=== PATIENT | male | born 1965 | race Caucasian/White ===

== ENCOUNTER → 2023-02-17 | Outpatient (CLI) | payer OTHER | END | disposition home or self-care (01) | LOC: LAB 11:30 → LAB SHORT 11:30 | DX: R50.9 Fever, unspecified (principal) | CPT/HCPCS: 87040 ==

== ENCOUNTER → 2023-02-17 | Outpatient (CLI) | payer OTHER ==
[2023-02-17 11:07] LABS: Hemoglobin 14.1 g/dL (13.5-17.5); Mean Corpuscular HGB 31.2 pg (26.0-34.0); Mean Corpuscular HGB Conc 35.3 g/dL (31.5-36.5); Mean Corpuscular Volume 89 fL (80-100); Mean Platelet Volume 9.3 fL (9.1-12.4); Platelet Count 144 K/mm3 (150-400); RDW Coefficient Variation 14.3 % (11.7-14.2); RDW Standard Deviation 45.7 fL (35.1-46.3); Red Blood Cell Count 4.52 M/mm3 (4.30-5.90); White Blood Cell Count 11.78 K/mm3 (4.00-11.30)
[2023-02-17 11:21] LABS: Albumin, Blood 4.1 g/dL (3.4-5.0); Albumin/Globulin Ratio 1.3 (0.8-1.8); Bilirubin, Total 1.4 mg/dL (0.1-1.0); Bun/Creatinine Ratio 12.9 (12.0-20.0); Calcium, Blood 8.9 mg/dL (8.5-10.1); Creatinine, Blood 1.24 mg/dL (0.60-1.20); Globulin, Blood 3.2 g/dL (2.2-4.0); Potassium, Blood 3.4 mmol/L (3.5-5.5); Total Protein, Blood 7.3 g/dL (6.4-8.2)
[2023-02-17 11:44] LABS: BAND PERCENT MAN 4 % (0-8); BASOPHILS PERCENT MAN 0 % (0-2); EOSINOPHILS PERCENT MAN 0 % (0-6); LYMPHOCYTES ABSOLUTE MAN 0.82 K/mm3 (0.84-5.20); LYMPHOCYTES PERCENT MAN 7 % (21-46); MONOCYTES ABSOLUTE MAN 0.58 K/mm3 (0.16-1.47); MONOCYTES PERCENT MAN 5 % (4-13); NEUTROPHILS ABSOLUTE MAN 10.36 K/mm3 (1.96-9.15); SEG NEUTROPHILS PERCENT MAN 84 % (41-73); TOTAL CELLS COUNTED 100
== END ==
LOC: LAB 10:57 → LAB SHORT 10:57
PROVIDERS: Physician Assistant Medical
DX: L03.116 Cellulitis of left lower limb (principal)
CPT/HCPCS: 80053; 83605; 83690; 85025

== ENCOUNTER → 2023-02-18 | Outpatient (CLI) | payer OTHER ==
[2023-02-18 17:29] LABS: BASOPHILS ABSOLUTE AUTO 0.05 K/mm3 (0.00-0.23); BASOPHILS PERCENT AUTO 1 % (0-2); EOSINOPHILS ABSOLUTE AUTO 0.06 K/mm3 (0.00-0.68); EOSINOPHILS PERCENT AUTO 1 % (0-6); Hematocrit 39.1 % (37.0-53.0); Hemoglobin 13.7 g/dL (13.5-17.5); IMMATURE GRAN ABSOLUTE AUTO 0.02 K/mm3 (0.00-0.10); IMMATURE GRAN PERCENT AUTO 0 % (0-1); LYMPHOCYTES ABSOLUTE AUTO 0.92 K/mm3 (0.84-5.20); LYMPHOCYTES PERCENT AUTO 14 % (21-46); MONOCYTES PERCENT AUTO 11 % (4-13); Mean Corpuscular HGB 31.1 pg (26.0-34.0); Mean Corpuscular Volume 89 fL (80-100); NEUTROPHILS ABSOLUTE AUTO 4.88 K/mm3 (1.96-9.15); NEUTROPHILS PERCENT AUTO 74 % (41-73); RDW Coefficient Variation 14.8 % (11.7-14.2); RDW Standard Deviation 47.5 fL (35.1-46.3); White Blood Cell Count 6.63 K/mm3 (4.00-11.30)
[2023-02-18 17:31] LABS: Platelet Count 129 K/mm3 (150-400)
== END | disposition home or self-care (01) ==
LOC: LAB 17:25 → LAB SHORT 17:25
PROVIDERS: Physician Assistant Medical
DX: L03.116 Cellulitis of left lower limb (principal)
CPT/HCPCS: 85025

== ENCOUNTER 2023-06-21 14:16 | Inpatient (IN) | payer OTHER ==
[~2023-06-21] VITALS: Ht 190.5 cm; Wt 174.3 kg
[2023-06-21] MEDS ORDERED: Doxycycline Mo100 M1 PO (15:37)
[2023-06-21] MEDS ORDERED: ARNUITY ELLIPT50 MCG (15:38)
[2023-06-21] MEDS ORDERED: FURO40 PO (15:39)
[2023-06-21] MEDS ORDERED: GABA300 PO (15:40)
[2023-06-21] MEDS ORDERED: LEVO750 PO (15:40)
[2023-06-21] MEDS ORDERED: METO100ER PO (15:41)
[2023-06-21] MEDS ORDERED: POTA20PAC PO (15:41)
[2023-06-21] MEDS ORDERED: TELM80 PO (15:42)
[2023-06-21 16:42] LABS: Hematocrit 41.4 % (37.0-53.0); Hemoglobin 14.6 g/dL (13.5-17.5); Mean Corpuscular HGB 31.1 pg (26.0-34.0); Mean Corpuscular HGB Conc 35.3 g/dL (31.5-36.5); Mean Corpuscular Volume 88 fL (80-100); Mean Platelet Volume 9.3 fL (9.1-12.4); Platelet Count 145 K/mm3 (150-400); RDW Coefficient Variation 14.2 % (11.7-14.2); RDW Standard Deviation 45.4 fL (35.1-46.3); White Blood Cell Count 13.09 K/mm3 (4.00-11.30)
[2023-06-21 17:00] LABS: BAND PERCENT MAN 31 % (0-8); BASOPHILS PERCENT MAN 0 % (0-2); EOSINOPHILS PERCENT MAN 0 % (0-6); LYMPHOCYTES ABSOLUTE MAN 0.39 K/mm3 (0.84-5.20); LYMPHOCYTES PERCENT MAN 3 % (21-46); METAMYELOCYTE ABSOLUTE MAN 0.13 K/mm3 (0.00-0.00); METAMYELOCYTE PERCENT MAN 1 % (0-0); MONOCYTES ABSOLUTE MAN 0.39 K/mm3 (0.16-1.47); MONOCYTES PERCENT MAN 3 % (4-13); MYELOCYTE ABSOLUTE MAN 0.13 K/mm3 (0.00-0.00); MYELOCYTE PERCENT MAN 1 % (0-0); NEUTROPHILS ABSOLUTE MAN 12.04 K/mm3 (1.96-9.15); SEG NEUTROPHILS PERCENT MAN 61 % (41-73); TOTAL CELLS COUNTED 100
[2023-06-21 17:06] LABS: Albumin, Blood 3.8 g/dL (3.4-5.0); Albumin/Globulin Ratio 1.2 (0.8-1.8); Bilirubin, Total 1.2 mg/dL (0.1-1.0); Calcium, Blood 9.3 mg/dL (8.5-10.1); Creatinine, Blood 1.14 mg/dL (0.60-1.20); Globulin, Blood 3.1 g/dL (2.2-4.0); Potassium, Blood 3.1 mmol/L (3.5-5.5); Total Protein, Blood 6.9 g/dL (6.4-8.2)
[2023-06-21 20:41] LABS: Bicarbonate Venous 22.8 mmol/L (24.0-30.0); PCO2 Venous 35.4 mmHg (38-42); pH Blood Venous 7.41 (7.34-7.37)
[2023-06-21 20:42] LABS: Base Excess Venous -2.5 mmol/L
[2023-06-22 01:45] VITALS: BP 138/97
[2023-06-22 03:55] LABS: Hematocrit 38.9 % (37.0-53.0); Hemoglobin 13.6 g/dL (13.5-17.5); Mean Corpuscular HGB 31.3 pg (26.0-34.0); Mean Corpuscular Volume 90 fL (80-100); Mean Platelet Volume 9.4 fL (9.1-12.4); Platelet Count 145 K/mm3 (150-400); RDW Coefficient Variation 14.6 % (11.7-14.2); RDW Standard Deviation 47.8 fL (35.1-46.3); Red Blood Cell Count 4.34 M/mm3 (4.30-5.90); White Blood Cell Count 21.05 K/mm3 (4.00-11.30)
[2023-06-22 04:14] LABS: Albumin, Blood 3.2 g/dL (3.4-5.0); Albumin/Globulin Ratio 0.9 (0.8-1.8); Bilirubin, Total 1.4 mg/dL (0.1-1.0); Bun/Creatinine Ratio 14.3 (12.0-20.0); Calcium, Blood 8.2 mg/dL (8.5-10.1); Creatinine, Blood 1.26 mg/dL (0.60-1.20); Globulin, Blood 3.4 g/dL (2.2-4.0); Magnesium, Blood 1.4 mg/dL (1.6-2.4); Potassium, Blood 4.1 mmol/L (3.5-5.5); Total Protein, Blood 6.6 g/dL (6.4-8.2)
[2023-06-22 04:28] LABS: BAND PERCENT MAN 26 % (0-8); BASOPHILS ABSOLUTE MAN 0.21 K/mm3 (0.00-0.23); BASOPHILS PERCENT MAN 1 % (0-2); EOSINOPHILS PERCENT MAN 0 % (0-6); LYMPHOCYTES ABSOLUTE MAN 0.21 K/mm3 (0.84-5.20); LYMPHOCYTES PERCENT MAN 1 % (21-46); METAMYELOCYTE ABSOLUTE MAN 0.42 K/mm3 (0.00-0.00); METAMYELOCYTE PERCENT MAN 2 % (0-0); MONOCYTES ABSOLUTE MAN 0.42 K/mm3 (0.16-1.47); MONOCYTES PERCENT MAN 2 % (4-13); MYELOCYTE ABSOLUTE MAN 0.21 K/mm3 (0.00-0.00); MYELOCYTE PERCENT MAN 1 % (0-0); NEUTROPHILS ABSOLUTE MAN 19.57 K/mm3 (1.96-9.15); SEG NEUTROPHILS PERCENT MAN 67 % (41-73); TOTAL CELLS COUNTED 100
--- NOTE | 2023-06-22 06:10 | NUR ---
SHIFT SUMMARY PT A&OX4, AND COOPERATIVE WITH CARE. NO ACUTE CHANGES, VSS. PT HAS NOT NEEDED PAIN COVERAGE SINCE ARRIVAL TO FLOOR. 1-ASSIST TO BATHROOM, INDEPENDENT TO BSC. PHOTO'S OF LLE TAKEN AND PLACED IN CHART. WEARS PERSONAL CPAP WHILE SLEEPING. CALLS APPROPRIATELY, CALL LIGHT WITHIN REACH.
[2023-06-22 07:22] VITALS: BP 138/74
[2023-06-22 11:51] VITALS: BP 100/84
[2023-06-22 16:05] VITALS: BP 137/78
--- NOTE | 2023-06-22 16:19 | NUR ---
PT REQUESTING PAIN MEDICATION. RN TO ROOM, PT APPEARS TO HAVE INCREASED CHILLS. TEMPORAL TEMP 103.7. PT GIVEN TYLENOL, REMOVED BLANKETS OTHER THAN SHEET, TEMP OF ROOM DECREASED. MD NOTIFIED, NO NEW ORDERS AT THIS TIME. HONEY PRODUCER NOTIFIED, ICE BAG PLACED BEHIND NECK.
--- NOTE | 2023-06-22 18:16 | NUR ---
ORAL TEMP DOWN TO 99.1 FOLLOWING ADMINISTRATION OF TYLENOL AND ICE PACK PLACEMENT. REDNESS ON LEGS HAS RECEEDED FROM LINE DRAWN AT 0800. FLUIDS RESTARTED AT 150/HR PER MD ORDER. PT HAS NOT HAD ANY APPETITE THIS AFTERNOON, LAST BM 06/21/23, REPORTS FLATUS. PT SBA TO BATHROOM ALTHOUGH HAS NOT BEEN USING URINAL SO PT RE-EDUCATEC ON THE NEED TO MEASSURE INTAKE/OUTPUT. URINAL PLACED AT BEDSIDE.
[2023-06-22 20:25] VITALS: BP 132/77
[2023-06-23 00:11] VITALS: BP 130/80
--- NOTE | 2023-06-23 03:18 | NUR ---
SHIFT SUMMARY NO ACUTE CHANGES TO REPORT OVERNIGHT, PT HAS BEEN AFEBRILE T/O THE SHIFT. VITALS ARE STABLE. CELLULITIS TO LLE OUTLINED WITH NONI WITH NO CHANGE. IV ANTIBIOTICS CONTINUED. PT A/OX4 AND MAKES NEEDS KNOWN. ASSESSMENT OTHERWISE UNCHANGED. BED IN LOWEST POSITION, CALL LIGHT WITHIN REACH.
[2023-06-23 04:00] VITALS: BP 130/81
--- NOTE | 2023-06-23 07:03 | NUR ---
INCREASED SOB PT REPORTS INCREASED SOB, AND FULLNESS IN BELLY. HE DENIES CHEST PAIN OR PRESSURE, BUT REPORTS HAVING A HARD TIME GETTING A BREATH IN. SATS WNL ON RA AVG AROUND 95%. LUNG SOUNDS CLEAR WITHOUT CRACKLES. PT HAS BEEN RECEIVING LR AT 150 ML. PT HAS VOIDED THIS SHIFT. HOWEVER, PT HAS NOT BEEN VOIDING IN URINAL DESPITE INSTRUCTION TO DO SO FOR ACCURATE I&O'S. BLADDER SCAN THIS SHIFT SHOWS A VOLUME OF 227. DR. DIAL CALLED AND NOTIFIED OF PT COMPLAINTS OF SOB, OUTPUT AND FLUIDS THAT ARE INFUSING. DR. DIAL ORDERED A CHEST X-RAY, AND TO DC FLUIDS. REPORT GIVEN TO COOPER KAUFMAN.
[2023-06-23 07:18] LABS: BASOPHILS ABSOLUTE AUTO 0.04 K/mm3 (0.00-0.23); BASOPHILS PERCENT AUTO 0 % (0-2); EOSINOPHILS ABSOLUTE AUTO 0.09 K/mm3 (0.00-0.68); EOSINOPHILS PERCENT AUTO 1 % (0-6); Hematocrit 34.4 % (37.0-53.0); Hemoglobin 12.2 g/dL (13.5-17.5); IMMATURE GRAN ABSOLUTE AUTO 0.08 K/mm3 (0.00-0.10); IMMATURE GRAN PERCENT AUTO 1 % (0-1); LYMPHOCYTES ABSOLUTE AUTO 0.69 K/mm3 (0.84-5.20); LYMPHOCYTES PERCENT AUTO 6 % (21-46); MONOCYTES ABSOLUTE AUTO 0.72 K/mm3 (0.16-1.47); MONOCYTES PERCENT AUTO 6 % (4-13); Mean Corpuscular HGB 31.1 pg (26.0-34.0); Mean Corpuscular HGB Conc 35.5 g/dL (31.5-36.5); Mean Corpuscular Volume 88 fL (80-100); Mean Platelet Volume 9.3 fL (9.1-12.4); NEUTROPHILS ABSOLUTE AUTO 10.07 K/mm3 (1.96-9.15); NEUTROPHILS PERCENT AUTO 86 % (41-73); Platelet Count 103 K/mm3 (150-400); RDW Coefficient Variation 14.6 % (11.7-14.2); Red Blood Cell Count 3.92 M/mm3 (4.30-5.90); White Blood Cell Count 11.69 K/mm3 (4.00-11.30)
[2023-06-23 07:35] LABS: Bun/Creatinine Ratio 14.9 (12.0-20.0); Calcium, Blood 8.5 mg/dL (8.5-10.1); Creatinine, Blood 0.87 mg/dL (0.60-1.20); Potassium, Blood 3.4 mmol/L (3.5-5.5)
--- NOTE | 2023-06-23 07:37 | NUR ---
INCREASED SOB PT OVERALL HAS HAD AN UNEVENTFUL NIGHT AND HAS RESTED AND DENIED NEEDS. HOWEVER THIS AM AT 0650 JUST BEFORE SHIFT CHANGE PT REPORTS INCREASED SOB, AND FULLNESS IN BELLY. PT REPORTS THAT HE HAS NOT HAD A BM SINCE SATURDAY, HE ATTEMPTED THIS AM WITHOUT SUCCESS, BUT IS PASSING GAS. HE DENIES CHEST PAIN OR PRESSURE, BUT REPORTS HAVING A HARD TIME GETTING A BREATH IN. SATS WNL ON RA AVG AROUND 95%. LUNG SOUNDS CLEAR WITHOUT CRACKLES. PT HAS BEEN RECEIVING LR AT 150 ML. PT HAS VOIDED THIS SHIFT. HOWEVER, PT HAS NOT BEEN VOIDING IN URINAL DESPITE INSTRUCTION TO DO SO FOR ACCURATE I&O'S. BLADDER SCAN THIS SHIFT SHOWS A VOLUME OF 227. DR. DIAL CALLED AND NOTIFIED OF PT COMPLAINTS OF SOB, OUTPUT AND FLUIDS THAT ARE INFUSING. DR. DIAL ORDERED A CHEST X-RAY, AND TO DC FLUIDS. REPORT GIVEN TO DAYSHIFT RN REGARDING PT CURRENT COMPLAINTS.
[2023-06-23 07:39] LABS: Vancomycin, Trough 9.4 ug/mL (5.0-10.0)
[2023-06-23 08:17] VITALS: BP 131/72
--- NOTE | 2023-06-23 09:52 | NUR ---
POWERGLIDE TO BE PLACED AND VANCOMYCIN HAS BEEN ORDRED. DR FELDMAN WAS IN THIS AM PT WAS MADE MEDICAL STATUS WITHOUT TELE. TELE WAS REMOVED.
--- NOTE | 2023-06-23 15:31 | NUR ---
PT HAS REMAINED A-FEBRILE T/O THE DAY, HE HAD AN EPISODE THIS AFTERNOON THAT HE WAS SHIVERING, FAMILY STS "THIS IS WHAT HE DID BEFORE HE GOT A 104 TEMPERATURE YESTERDAY", SKIN IS COOL TO TOUCH, DRY, PINK, INTACT. HE IS A/O X4. VSS. DENIES CP OR SOB. LEG WOUND OPEN TO AIR WITHOUT NOTED DRAINAGE. PT REPORTS PAIN TO LEGS AND HEAD, HE IS MEDICATED WITH GABAPENTIN, TYLENOL AND TRAMADOL FOR PAIN. PT ALSO COMPLAINS THAT HE HAS NOT HAD A BM FOR 3 DAYS, BOWEL CARE IS ORDRED, PT ATTEMPTED TO HAVE BM WHICH WAS UNSUCESSFUL. PT ALSO REPORTS GAS, HE IS TREATED FOR GAS. HE WAS MADE MEDICAL STATUS TODAY WITHOUT TELEMETRY.
[2023-06-23 17:27] VITALS: BP 134/75
--- NOTE | 2023-06-23 17:53 | NUR ---
PT REMAINS A/O X4. DENIES CP OR SOB. VSS. HE IS AWAITING MEDICAL FLOOR BED AT THIS TIME
[2023-06-23 19:00] VITALS: BP 138/76
--- NOTE | 2023-06-23 23:25 | NUR ---
ASSUMPTION OF CARE: PATIENT IS ALERT AND ORIENTED, FEBRILE ON ASSUMPTION, 1125 NO LONGER FEBRILE AFTER TYLENOL AND DECREASING ROOM TEMP. PATIENT FLUIDS WITH NO ORDER, PLACED ON STANDBY. PROVIDER AWARE. PATIENT WITH GREAT ORAL INTAKE ABOUT 1L SINCE ASSUMPTION. PATIENT C/O CONSTIPATION/BLOATING, MEDICATION AND EDUCATION GIVEN, HAS BEEN AMBULATING MUCH TOLERATED. LOWER EXTREME LOOKS TO BE IMPROVING. NO CONCERNS FROM THIS RN AT THIS TIME DENIES CHEST PAIN PRESSURE OR SOB AT REST. PATIENT DENIES OTHER CONCERNS.
[2023-06-24 03:11] VITALS: BP 133/76
--- NOTE | 2023-06-24 04:55 | NUR ---
NO CHANGES FROM ASSUMPTION OF CARE. PATIENT WANTED TO WAIT FOR INCREASING BM MEDS, DENIES CHEST PAIN PRESSURE OR SOB. PATIENT HAS BEEN COOPERATIVE WITH CARE, AMBULATING WELL TO RESTROOM SBA. VANCO AND MERREM BOTH INFUSED DURING THE SHIFT. PATIENT TOLERATING WELL.
[2023-06-24 07:00] LABS: Bun/Creatinine Ratio 12.3 (12.0-20.0); Calcium, Blood 8.5 mg/dL (8.5-10.1); Creatinine, Blood 0.81 mg/dL (0.60-1.20); Potassium, Blood 3.4 mmol/L (3.5-5.5)
[2023-06-24 07:24] VITALS: BP 113/97
[2023-06-24 07:30] VITALS: BP 113/97
[2023-06-24 07:39] LABS: Creatinine, Blood 0.84 mg/dL (0.60-1.20); Vancomycin, Trough 14.9 ug/mL (5.0-10.0)
--- NOTE | 2023-06-24 11:30 | NUR ---
RN/ DAY SHIFT SUMMARY MORNING REPORT RECIEVED WITH THE NIGHT NURSE PRIOR TO ASSUMPTION OF CARE AT THE PATIENTS BEDSIDE. THE PATIENT WAS ASSESSED WITH BELLY DISTENTION AND HYPERACTIVE BOWEL SOUNDS PRESENT AND THE CELLULITIS BORDERS OBSERVED WITH NO CHANGE. THE PATIENT RECIEVED COLASE, SENOKOT, LACTOBACILIS, AND ENULOSE TO FACILITATE A BOWEL MOVEMENT. THE PATIENT HAS NOT HAD A BOWEL MOVEMENT FOR 5 DAYS. THE PATIENT HAS ALSO BEEN GIVEN CEFEPIME AND VANCO PRIOR TO TRANSFER TO MEDICAL FLOOR. A TRANFER REPORT HAS BEEN GIVEN TO THE DAY NURSE PRIOR TO THEIR ASSUMPTION OF CARE AND TRANSFER. THE PATIENT HAS BEEN TRANSFERED TO [facility] WITH NO ISSUES.
--- NOTE | 2023-06-24 11:38 | NUR ---
PT ARRIVED TO UNIT AT APROX 1115 FROM PCU. PT SBA IN TX TO BED FOR ASSISTANCE WITH LINES. PT DENIDS PAIN. REPORTS MOD ABD DISTENTION R/T CONSTIPATION. PT MEDICATED FOR THIS PRIOR TO TX.
[2023-06-24 14:32] VITALS: BP 120/77
--- NOTE | 2023-06-24 19:18 | NUR ---
SHIFT SUMMARY PT HAD LARGE AMT OF WEEPING SANGUINOUS FLUID FROM LLE FOLLOWING TX TO UNIT. WRAPED W/GAUZE, ABD, KERLEX AND AE WRAP. LARGE FLUID FILLED BLISTER TO CALF-MD AWARE. TMAX 102.0 DOWN TO 99.2 W/TYLENOL. PT UNABLE TO HAVE BM DESPITE BOWEL CARE, ORDER FOR MD FOR ENEMA. PT HAS BEEN UP AND AMBULATING, DENIES N/V. PLAN TO CONTINUE IV ABX FOR CELLULITIS AND ENCOURAGE AMBULATION FOR GASTRIC MOTILITY
[2023-06-24 19:38] VITALS: BP 129/74
--- NOTE | 2023-06-25 05:29 | NUR ---
SHIFT SUMMARY VSS. PT SLEPT WELL T/O THE NIGHT. PT HAD ONE BOWEL MOVEMENT AFTER FLEET ENEMA, REPORTED IMMEDIATE RELIEF BUT LATER EXPRESSED THAT HE FELT IF HIS "BELLY WAS FILLING UP" AGAIN. VOIDING W/O DIFFICULTY. LLE NOTED TO BE EXTREMELY SWOLLEN, RED, AND WARM. PT REPORTS THAT THIS STATE IS IMPROVED COMPARED TO WHEN HE WAS ADMITTED. LLE NOTED TO BE DRAINING LARGE AMOUNTS OF SS FLUID, ATTEMPTED TO DRESS WITH ABD'S AND EXUDRY PADS. NO ACUTE EVENTS T/O THE NIGHT. PLAN TO CONTINUE IV ABX.
[2023-06-25 06:10] VITALS: BP 130/76
[2023-06-25 07:19] LABS: Hematocrit 36.8 % (37.0-53.0); Hemoglobin 12.6 g/dL (13.5-17.5); Mean Corpuscular HGB 30.4 pg (26.0-34.0); Mean Corpuscular HGB Conc 34.2 g/dL (31.5-36.5); Mean Corpuscular Volume 89 fL (80-100); Mean Platelet Volume 9.2 fL (9.1-12.4); Platelet Count 159 K/mm3 (150-400); RDW Coefficient Variation 14.3 % (11.7-14.2); RDW Standard Deviation 46.3 fL (35.1-46.3); Red Blood Cell Count 4.14 M/mm3 (4.30-5.90); White Blood Cell Count 8.24 K/mm3 (4.00-11.30)
[2023-06-25 07:30] LABS: Bun/Creatinine Ratio 11.1 (12.0-20.0); Calcium, Blood 8.4 mg/dL (8.5-10.1); Creatinine, Blood 0.81 mg/dL (0.60-1.20); Potassium, Blood 3.1 mmol/L (3.5-5.5)
[2023-06-25 07:31] VITALS: BP 139/84
[2023-06-25 07:38] LABS: Vancomycin, Trough 16.7 ug/mL (5.0-10.0)
[2023-06-25 15:55] VITALS: BP 123/71
--- NOTE | 2023-06-25 19:32 | NUR ---
SHIFT SUMMARY PT CONTINUES TO HAVE INCREASED SWELLING/REDNESS/WARMTH TO LLE. OUTLINED AT 1915. AFEBRILE. PER MD ALL NEW SCANS CLEAR AND NO DVT OR NEW ABCESS FORMATION. CONTINUE IV ABX AND MONITORING WOUND. PT SHOWERED AND NEW DRESSING APPLIED. PT HAS BEEN UP AN AMBULATING T/O SHIFT. REPORTS FLATUS BUT NO BM TODAY. ABD DISTENDED BUT SOFTER THAN PREV ASSESSMENT, BTP X'S 4. TOLERATING SMALL AMT FULL LIQUIDS.
[2023-06-25 19:35] VITALS: BP 130/78
[2023-06-25 19:36] VITALS: BP 130/78
[2023-06-26 04:36] VITALS: BP 143/86
--- NOTE | 2023-06-26 04:51 | NUR ---
SHIFT SUMMARY PT HAS SUBSTANTIAL CELLULITIS L LOWER LIMB. REDENNED AREAS OUTLINED, HAS NOT GROWN OVERNIGHT. NO ACUTE CHANGES OVERNIGHT. A&O X4. VS WNL FOR PT, WEARING CPAP WHEN ASLEEP. TOLERATING ORALS. PT AMBULATED IN RED INDEPENDENTLY. PT ATTEMPT TO ELEVATE LIMB TO RELIEVE SWELLING, PT REPORTS CONSISTENT PAIN. MEDICATED PER EMAR. PT HAS NOT HAD A BOWEL MOVEMENT, DISTENTION MOST NOTABLE IN UPPER QUADRANT, PT HAS REPORTED PASSING OF GAS. CALL LIGHT WITHIN REACH, BED IN LOWEST POSITION, WILL REPORT TO DAY NURSE.
[2023-06-26 07:22] VITALS: BP 105/61
[2023-06-26 07:47] LABS: Vancomycin, Trough 9.7 ug/mL (5.0-10.0)
--- NOTE | 2023-06-26 11:58 | NUR ---
"Spiritual Care | Nurse Request Pt. is awake in bed and welcomes my visit. Pt. is pleasant but dislpays frustration regarding his condition. Facilitate a life review and listen with interest, empathy and a calming presence. Pt. displayed evidence of awareness and enagaement and welcomed this tool and die machinist to return."
[2023-06-26 14:45] VITALS: BP 127/81
--- NOTE | 2023-06-26 16:42 | NUR ---
SHIFT SUMMARY PT A&OX4, VSS/RA, DEAN PO, VOIDING, PASSING LARGE AMT FLATUS/1 SMALL PELLET BM TODAY/BOWEL CARE PROVIDED - PLAN FOR MOM BEDTIME, PAIN MANAGED WITH ULTRAM & TYLENOL PRN, AMBULATING INDEPENDENT IN ROOM/HALLWAY, EXT DWL/IVF KVO/ABX PER EMAR. LLE CELLULITIS SLIGHTLY IMPROVED FROM YESTERDAY. WILL REPORT TO ONCOMING NOC RN.
[2023-06-26 20:02] VITALS: BP 116/56
--- NOTE | 2023-06-26 22:14 | NUR ---
DRESSING CHANGE DRESSING CHANGED L LOWER LEG. CLEANSED WITH STERILE WATER. YELLOW DRAINAGE FROM POSTERIOR CALF. APPROX 3CM SKIN TEAR ON LATERAL ANKLE. REDNESS DECREASING FROM PREVIOUS OUTLINED AREA. 2 ABD PADS PLACED ON THE CALF, WRAPED WITH WEB ROLL AND DAVIDA WRAP.
--- NOTE | 2023-06-27 00:45 | NUR ---
DR DVAID SPOKE WITH DR LAWRENCE ABOUT ABD DISTENTION/FIRMNESS. PT REPORT INCREASED DIFFICULITY WITH BREATHING R/T ABD DISTENTION. NO BM SINCE 06/21/2023 PER PT REPORT DESPITE AGRESSIVE BOWEL CARE. DR ORDERED CT W/O CONTRAST WITH CONCERN OF BOWEL OBSTRUCTION.
[2023-06-27 04:16] VITALS: BP 124/85
[2023-06-27 04:45] LABS: Bun/Creatinine Ratio 8.4 (12.0-20.0); Calcium, Blood 8.4 mg/dL (8.5-10.1); Creatinine, Blood 0.83 mg/dL (0.60-1.20); Potassium, Blood 3.6 mmol/L (3.5-5.5)
--- NOTE | 2023-06-27 05:58 | NUR ---
SHIFT SUMMARY PT HAS SUBSTANTIAL CELLULITIS IN L LOWER LIMB. REDENNED AREAS DECREASING IN SIZE. DRESSING CHANGES THIS SHIFT. PT COMPLAINS OF WEEPING OF LIMB WHEN AMBULATING. PT A&O X4. VS WNL FOR PT, COMPLIANT WITH CPAP AT NIGHT. TOLERATING ORALS. PT DESCRIBED INCREASING PAIN IN ABD R/T CONSTIPATION. ABD FIRM/DISTENDED. PT TAKEN TO CT OVERNGIHT, BOWEL IMPACTION NOTED; CONTINUE BOWEL CARE. ENCOURAGE AMBULATION. PT AMBULATES INDEPENDENTLY IN HALLWAY. CALL LIGHT WITHIN REACH, BED IN LOWEST POSITION, WILL REPORT TO DAY NURSE.
[2023-06-27 07:58] VITALS: BP 132/84
[2023-06-27 15:06] VITALS: BP 140/82
--- NOTE | 2023-06-27 18:07 | NUR ---
SHIFT SUMMARY PT A&OX4, VSS/RA, DEAN PO, VOIDING, PASSING LARGE AMT FLATUS/1 LARGE LIQUID BM TODAY, PAIN MANAGED WITH ULTRAM & TYLENOL PRN, AMBULATING INDEPENDENT IN ROOM/HALLWAY, EXT DWL/IVF KVO/ABX PER EMAR. GI CONSULT-PLAN FOR THURSDAY 06/28: CLEAR LIQUIDS UNTIL 1300-THEN NPO, PT WILL GO TO O.R. APPROX 1600. WILL REPORT TO ONCOMING NOC MANDEEP.
[2023-06-27 20:41] VITALS: BP 127/69
--- NOTE | 2023-06-27 21:50 | NUR ---
DRESSING CHANGE PT DRESSING TO LLE REMOVED. BACK OF LEG APPEARS VERY MOIST, SKIN SLOUGHING AND WEEPING. WILL LEAVE OPEN TO AIR AT THIS TIME AND RE-WRAP PRIOR TO PT GETTING BACK IN BED TO PROTECT FROM SKIN TEARS. EDUCATED PT ON NEED TO CHANGE MULTIPLE TIMES T/O SHIFT TO KEEP SKIN FROM BEING CONSTANTLY MOIST.
[2023-06-28 02:53] VITALS: BP 119/73
[2023-06-28 04:24] LABS: Hematocrit 32.1 % (37.0-53.0); Hemoglobin 11.3 g/dL (13.5-17.5); Mean Corpuscular HGB Conc 35.2 g/dL (31.5-36.5); Mean Corpuscular Volume 88 fL (80-100); Mean Platelet Volume 9.2 fL (9.1-12.4); Platelet Count 217 K/mm3 (150-400); RDW Coefficient Variation 14.1 % (11.7-14.2); RDW Standard Deviation 45.6 fL (35.1-46.3); Red Blood Cell Count 3.65 M/mm3 (4.30-5.90); White Blood Cell Count 6.97 K/mm3 (4.00-11.30)
[2023-06-28 04:51] LABS: Bun/Creatinine Ratio 8.3 (12.0-20.0); Calcium, Blood 8.3 mg/dL (8.5-10.1); Creatinine, Blood 0.73 mg/dL (0.60-1.20); Potassium, Blood 3.7 mmol/L (3.5-5.5); Thyroid Stimulating Hormone 3.58 uIU/mL (0.360-4.800)
[2023-06-28 07:16] VITALS: BP 127/77
--- NOTE | 2023-06-28 15:50 | NUR ---
PT TAKEN TO DAY SURGERY.
[2023-06-28 16:07] VITALS: BP 154/89
--- NOTE | 2023-06-28 16:47 | NUR ---
PRE PROCEDURE NOTE PT A&OX4, BREATHING RA, VERY CHILLED, AFEBRILE, BEAR HUGGER USED. PT SHIVERING SEVERELY. PT L LEG RED, SWOLLEN AND ULCERATED. PT CALM AND COOPERATIVE. Patient confirms NPO status and agrees with scheduled PROCEDURE. Pre-Op teaching done. Pt verbalizes understanding.
--- NOTE | 2023-06-28 17:04 | NUR ---
06/28/23 [address] BARTLETT'S ANESTHESIA RECORD FOR SEDATION
[2023-06-28 17:37] VITALS: BP 162/73
[2023-06-28 18:05] VITALS: BP 148/74
--- NOTE | 2023-06-28 18:19 | NUR ---
SUMMARY LLE CELLULITIS, CONT. TO HAVE WEEPING ON LLE, PT INDEPENDENT IN ROOM, AMBULATED DOWN THE HALLS, DENIES ANY PAIN, PT CAN HAVE LLE OPEN TO AIR OR PLACE XEROFORM PER YOUTH CORRECTIONS OFFICER, PT PREFERS TO LEAVE WOUND OPEN TO AIR, S/P FLEX SIG. SCOPE THIS AFTERNOON, OK FOR CARDIAC DIET PER DR. MULLINS, T99.0, PT GIVEN IS, NO ACUTE CHANGES THIS SHIFT.
[2023-06-28 19:28] VITALS: BP 132/52
[2023-06-29 00:18] VITALS: BP 140/79
--- NOTE | 2023-06-29 04:41 | NUR ---
SHIFT SUMMARY PATIENT WITH LLE CELLULITIS, LLE IS IT SENIOR SOFTWARE ENGINEER JAVA AND DRNG YELLOWIS FLUID ONTO BED PADS. SOME REDDNESS, BLISTERS AND SWELLING NOTED. PATIENT FEBRILE THIS SHIFT AND TREATED WITH TYLENOL AND TRAMADOL. REPORTS PASSING GAS NO BM YET. RESTING COMFORTABLY AT THIS TIME, VSS. CALL LIGHT IN REACH.
[2023-06-29 05:53] VITALS: BP 127/72
[2023-06-29 07:19] VITALS: BP 135/89
[2023-06-29] MEDS ORDERED: CEPH500 PO (13:48)
[2023-06-29] MEDS ORDERED: CLINDAMYCIN HCL75 MG PO (13:49)
[2023-06-29] MEDS ORDERED: SENNA PLUS PO (13:52)
[2023-06-29 14:52] VITALS: BP 181/90
[2023-06-29 16:54] LABS: Hematocrit 33.1 % (37.0-53.0); Hemoglobin 11.3 g/dL (13.5-17.5); Mean Corpuscular HGB 30.1 pg (26.0-34.0); Mean Corpuscular HGB Conc 34.1 g/dL (31.5-36.5); Mean Corpuscular Volume 88 fL (80-100); Mean Platelet Volume 9.3 fL (9.1-12.4); Platelet Count 258 K/mm3 (150-400); RDW Standard Deviation 45.8 fL (35.1-46.3); Red Blood Cell Count 3.75 M/mm3 (4.30-5.90); White Blood Cell Count 6.53 K/mm3 (4.00-11.30)
[2023-06-29 17:23] LABS: Bun/Creatinine Ratio 7.4 (12.0-20.0); Calcium, Blood 8.4 mg/dL (8.5-10.1); Creatinine, Blood 0.95 mg/dL (0.60-1.20)
--- NOTE | 2023-06-29 19:20 | NUR ---
SHIFT SUMMARY PT TMAX 102.9 RESOLVED WITH TYLENOL. AXILLARY TEMP. PT LEGS APPEAR IMPROVED. OCCASIONAL COUGH/SORE THROAT. BLOOD CX AND CXR DONE. AWAITING RESULTS FOR NATHALIE.
[2023-06-29 19:51] VITALS: BP 146/77
[2023-06-30 03:43] VITALS: BP 133/80
--- NOTE | 2023-06-30 06:09 | NUR ---
SHIFT SUMMARY AOX4. MAX TEMP 100.7 PO, GAVE TYLENOL. DENIES N/V OR DYSPNEA. REPORTS NEW OCC DRY NONPRODUCTIVE COUGH. SPO2 >90% ON RA OR CPAP WHILE ASLEEP. E/U RESP. REPORTS PAIN IN LLE, HOWEVER STATES SCHEDULED GABAPENTIN HELPS c PAIN. +3 EDEMA LLE, REDNESS HAS DECREASED FROM PREVIOUS OUTLINE, MULTIPLE 1/2 DOLLER SIZE BLISTERS ON L INSIDE THIGH. MIN YELLOW DRAINAGE FROM LLE. IND c AMBULATION IN RM. AWAITING BLOOD CX RESULTS. CALL LIGHT IN REACH, WILL MONITOR.
[2023-06-30 07:26] VITALS: BP 133/80
[2023-06-30 14:30] VITALS: BP 146/90
--- NOTE | 2023-06-30 15:54 | NUR ---
SHIFT SUMMARY PT HAS DONE WELL TODAY BUT IS VERY BUMMED ABOUT HAVING TO STAY IN THE HOSPITAL. AFEBRILE. IS STILL AMBULATING IN HALLWAYS. HAVING BM's & PASSING GAS. POWERGLIDE STARTED LEAKING SO IV PLACED.
[2023-06-30 19:18] VITALS: BP 121/62
[2023-07-01 02:28] VITALS: BP 125/68
--- NOTE | 2023-07-01 04:46 | NUR ---
SHIFT SUMMARY NO ACUTE CHANGES OVERNIGHT. A&Ox4, VS WNL FOR PT, COMPLIANT WITH CPAP. NO FEVER OVERNIGHT. PT AMBULATES IN RED INDEPENDENTLY. L LEG CELLULITIS OPEN TO AIR, SKIN PEELING WITH SCANT DRAINAGE. PT ELEVATES LEG TOLERATED. CALL LIGHT WITHIN REACH, BED IN LOWEST POSITION, WILL REPORT TO DAY RN.
[2023-07-01 07:11] VITALS: BP 131/69
--- NOTE | 2023-07-01 13:30 | NUR ---
DISCHARGE SUMMARY PT A&OX4, VSS/RA, DEAN PO, VOIDING/BMs, AMB INDEPENDENTLY IN ROOM, PAIN MANAGED, IV DC'D, DRESSING APPLIED TO LLE (PER WATER SERVER XEROFOLLIE, ABD, GAUZE, DAVIDA WRAP) AND SUPPLIES SENT WITH PT. DC INS PROVIDED. PT REP UNDERSTANDING THOSE INSTRUCTIONS INCLUDING FU WITH PCP AND WOUND CARE OUTPT AND HOW TO DO DRESSING CHANGES. LEFT VIA WC WITH ALL PERSONAL POSSESSIONS INCLUDING DC PACKET AND DRESSING SUPPLIES, TO GO HOME WITH .
== END 2023-07-01 12:50 | disposition home or self-care (01) | DRG 871 ==
LOC: ER 14:16 → SURS 21:18 → ERHOLD 21:18 → PCU 21:18 → SURS 06-24 11:35
PROVIDERS: Emergency Medicine; Internal Medicine; Nurse Practitioner Acute Care; ADMIT Internal Medicine
PROC: 0DJD8ZZ Inspection of Lower Intestinal Tract, Via Natural or Artificial Opening Endoscopic (ICD-10-PCS; principal; 2023-06-21)
PROC: 3E03329 Introduction of Other Anti-infective into Peripheral Vein, Percutaneous Approach (ICD-10-PCS; 2023-06-21)
PROC: 5A09357 Assistance with Respiratory Ventilation, Less than 24 Consecutive Hours, Continuous Positive Airway Pressure (ICD-10-PCS; 2023-06-21)
DX: A41.9 Sepsis, unspecified organism (principal); R65.21 Severe sepsis with septic shock; L03.116 Cellulitis of left lower limb; Z68.42 Body mass index [BMI] 45.0-49.9, adult; K57.30 Diverticulosis of large intestine without perforation or abscess without bleeding; K59.00 Constipation, unspecified; I10 Essential (primary) hypertension; I87.8 Other specified disorders of veins; E87.6 Hypokalemia; K76.0 Fatty (change of) liver, not elsewhere classified; G47.33 Obstructive sleep apnea (adult) (pediatric); E66.01 Morbid (severe) obesity due to excess calories; Z79.899 Other long term (current) drug therapy; Z79.2 Long term (current) use of antibiotics; Z79.01 Long term (current) use of anticoagulants; Z87.891 Personal history of nicotine dependence
CPT/HCPCS: 36415; 71045; 71046; 73701; 74018; 74176; 80048; 80053; 80202; 82565; 82803; 82947; 83605; 83735; 84443; 85025; 85027; 87040; 93971; 94660; 94760; 94762; 96361; 96365-59; 96366-59; 96367-59; 99285-25; A9270; J0690; J0692; J1650; J1940; J2250; J2543; J2704; J3370; J3475; J7030; J7050; J7120; Q9967

== ENCOUNTER 2023-11-07 22:04 | Inpatient (IN) | payer OTHER ==
[~2023-11-07] VITALS: Ht 190.5 cm; Wt 160.5 kg
[~2023-11-07 22:04] MED LIST: ARNUITY ELLIPT50 MCG INH; CEPH500 PO; CLINDAMYCIN HCL75 MG PO; DOCUZEN 8.6-501 EACH PO; Doxycycline Mo100 M1 PO; FURO40 PO; GABA300 PO; LEVO750 PO; METO100ER PO; POTA20PAC PO; TELM80 PO
[2023-11-07 23:17] LABS: Albumin, Blood 4.1 g/dL (3.4-5.0); Albumin/Globulin Ratio 1.1 (0.8-1.8); Bilirubin, Total 0.9 mg/dL (0.1-1.0); Bun/Creatinine Ratio 20.2 (12.0-20.0); Calcium, Blood 9.6 mg/dL (8.5-10.1); Creatinine, Blood 1.09 mg/dL (0.60-1.20); Globulin, Blood 3.7 g/dL (2.2-4.0); Potassium, Blood 3.3 mmol/L (3.5-5.5); Total Protein, Blood 7.8 g/dL (6.4-8.2)
[2023-11-08 00:13] LABS: BASOPHILS ABSOLUTE AUTO 0.02 K/mm3 (0.00-0.23); BASOPHILS PERCENT AUTO 0 % (0-2); EOSINOPHILS ABSOLUTE AUTO 0.03 K/mm3 (0.00-0.68); EOSINOPHILS PERCENT AUTO 0 % (0-6); Hematocrit 43.8 % (37.0-53.0); Hemoglobin 15.3 g/dL (13.5-17.5); IMMATURE GRAN ABSOLUTE AUTO 0.05 K/mm3 (0.00-0.10); IMMATURE GRAN PERCENT AUTO 0 % (0-1); LYMPHOCYTES ABSOLUTE AUTO 0.72 K/mm3 (0.84-5.20); LYMPHOCYTES PERCENT AUTO 6 % (21-46); MONOCYTES ABSOLUTE AUTO 0.17 K/mm3 (0.16-1.47); MONOCYTES PERCENT AUTO 2 % (4-13); Mean Corpuscular HGB 30.2 pg (26.0-34.0); Mean Corpuscular HGB Conc 34.9 g/dL (31.5-36.5); Mean Corpuscular Volume 86 fL (80-100); Mean Platelet Volume 9.3 fL (9.1-12.4); NEUTROPHILS ABSOLUTE AUTO 10.53 K/mm3 (1.96-9.15); NEUTROPHILS PERCENT AUTO 91 % (41-73); Platelet Count 212 K/mm3 (150-400); RDW Coefficient Variation 14.9 % (11.7-14.2); RDW Standard Deviation 46.8 fL (35.1-46.3); Red Blood Cell Count 5.07 M/mm3 (4.30-5.90); White Blood Cell Count 11.52 K/mm3 (4.00-11.30)
[2023-11-08] MEDS ORDERED: DOXY100 PO (01:28)
[2023-11-08 12:40] VITALS: BP 130/70
[2023-11-08 14:36] LABS: Hematocrit 39.5 % (37.0-53.0); Hemoglobin 13.9 g/dL (13.5-17.5); Mean Corpuscular HGB 30.5 pg (26.0-34.0); Mean Corpuscular HGB Conc 35.2 g/dL (31.5-36.5); Mean Corpuscular Volume 87 fL (80-100); Mean Platelet Volume 9.1 fL (9.1-12.4); Platelet Count 167 K/mm3 (150-400); RDW Coefficient Variation 15.6 % (11.7-14.2); RDW Standard Deviation 49.5 fL (35.1-46.3); Red Blood Cell Count 4.56 M/mm3 (4.30-5.90); White Blood Cell Count 24.36 K/mm3 (4.00-11.30)
[2023-11-08 14:55] LABS: BAND PERCENT MAN 24 % (0-8); BASOPHILS PERCENT MAN 0 % (0-2); Bun/Creatinine Ratio 17.8 (12.0-20.0); Calcium, Blood 9.2 mg/dL (8.5-10.1); Creatinine, Blood 1.18 mg/dL (0.60-1.20); EOSINOPHILS PERCENT MAN 0 % (0-6); LYMPHOCYTES ABSOLUTE MAN 0.97 K/mm3 (0.84-5.20); LYMPHOCYTES PERCENT MAN 4 % (21-46); MONOCYTES ABSOLUTE MAN 0.97 K/mm3 (0.16-1.47); MONOCYTES PERCENT MAN 4 % (4-13); NEUTROPHILS ABSOLUTE MAN 22.41 K/mm3 (1.96-9.15); Potassium, Blood 3.7 mmol/L (3.5-5.5); SEG NEUTROPHILS PERCENT MAN 68 % (41-73); TOTAL CELLS COUNTED 100
[2023-11-08 15:13] VITALS: BP 124/65
[2023-11-08 20:11] VITALS: BP 118/66
[2023-11-09 03:17] VITALS: BP 114/68
[2023-11-09 05:28] LABS: BASOPHILS ABSOLUTE AUTO 0.05 K/mm3 (0.00-0.23); BASOPHILS PERCENT AUTO 0 % (0-2); EOSINOPHILS PERCENT AUTO 0 % (0-6); Hematocrit 38.1 % (37.0-53.0); Hemoglobin 13.2 g/dL (13.5-17.5); IMMATURE GRAN ABSOLUTE AUTO 0.15 K/mm3 (0.00-0.10); IMMATURE GRAN PERCENT AUTO 1 % (0-1); LYMPHOCYTES ABSOLUTE AUTO 1.94 K/mm3 (0.84-5.20); LYMPHOCYTES PERCENT AUTO 10 % (21-46); MONOCYTES ABSOLUTE AUTO 0.73 K/mm3 (0.16-1.47); MONOCYTES PERCENT AUTO 4 % (4-13); Mean Corpuscular HGB 29.9 pg (26.0-34.0); Mean Corpuscular HGB Conc 34.6 g/dL (31.5-36.5); Mean Corpuscular Volume 86 fL (80-100); Mean Platelet Volume 9.5 fL (9.1-12.4); NEUTROPHILS ABSOLUTE AUTO 15.99 K/mm3 (1.96-9.15); NEUTROPHILS PERCENT AUTO 85 % (41-73); Platelet Count 168 K/mm3 (150-400); RDW Coefficient Variation 15.5 % (11.7-14.2); RDW Standard Deviation 48.7 fL (35.1-46.3); Red Blood Cell Count 4.41 M/mm3 (4.30-5.90); White Blood Cell Count 18.86 K/mm3 (4.00-11.30)
[2023-11-09 06:12] LABS: Bun/Creatinine Ratio 15.5 (12.0-20.0); Calcium, Blood 8.9 mg/dL (8.5-10.1); Creatinine, Blood 1.29 mg/dL (0.60-1.20); Potassium, Blood 3.2 mmol/L (3.5-5.5)
[2023-11-09 07:37] VITALS: BP 128/69
[2023-11-09 14:46] LABS: Bun/Creatinine Ratio 17.1 (12.0-20.0); Calcium, Blood 8.8 mg/dL (8.5-10.1); Creatinine, Blood 1.05 mg/dL (0.60-1.20); Potassium, Blood 3.3 mmol/L (3.5-5.5)
[2023-11-09 15:02] VITALS: BP 132/68
[2023-11-09 19:57] VITALS: BP 118/66
[2023-11-10 02:35] VITALS: BP 124/72
[2023-11-10 05:18] LABS: BASOPHILS ABSOLUTE AUTO 0.03 K/mm3 (0.00-0.23); BASOPHILS PERCENT AUTO 0 % (0-2); EOSINOPHILS ABSOLUTE AUTO 0.04 K/mm3 (0.00-0.68); EOSINOPHILS PERCENT AUTO 0 % (0-6); Hematocrit 34.3 % (37.0-53.0); Hemoglobin 11.7 g/dL (13.5-17.5); IMMATURE GRAN ABSOLUTE AUTO 0.05 K/mm3 (0.00-0.10); IMMATURE GRAN PERCENT AUTO 1 % (0-1); LYMPHOCYTES ABSOLUTE AUTO 1.33 K/mm3 (0.84-5.20); LYMPHOCYTES PERCENT AUTO 12 % (21-46); MONOCYTES ABSOLUTE AUTO 0.85 K/mm3 (0.16-1.47); MONOCYTES PERCENT AUTO 8 % (4-13); Mean Corpuscular HGB 29.8 pg (26.0-34.0); Mean Corpuscular HGB Conc 34.1 g/dL (31.5-36.5); Mean Corpuscular Volume 88 fL (80-100); Mean Platelet Volume 9.6 fL (9.1-12.4); NEUTROPHILS PERCENT AUTO 79 % (41-73); Platelet Count 153 K/mm3 (150-400); RDW Coefficient Variation 15.2 % (11.7-14.2); RDW Standard Deviation 48.9 fL (35.1-46.3); Red Blood Cell Count 3.92 M/mm3 (4.30-5.90)
[2023-11-10 05:34] LABS: Bun/Creatinine Ratio 16.3 (12.0-20.0); Calcium, Blood 8.6 mg/dL (8.5-10.1); Creatinine, Blood 0.98 mg/dL (0.60-1.20); Potassium, Blood 3.3 mmol/L (3.5-5.5)
[2023-11-10 08:05] VITALS: BP 125/77
[2023-11-10 15:57] VITALS: BP 121/72
[2023-11-10 21:20] VITALS: BP 131/65
[2023-11-11 04:55] LABS: Hemoglobin 12.3 g/dL (13.5-17.5); Mean Corpuscular HGB 29.7 pg (26.0-34.0); Mean Corpuscular HGB Conc 34.2 g/dL (31.5-36.5); Mean Corpuscular Volume 87 fL (80-100); Mean Platelet Volume 9.4 fL (9.1-12.4); Platelet Count 173 K/mm3 (150-400); RDW Coefficient Variation 14.9 % (11.7-14.2); RDW Standard Deviation 47.7 fL (35.1-46.3); Red Blood Cell Count 4.14 M/mm3 (4.30-5.90)
[2023-11-11 05:10] LABS: Bun/Creatinine Ratio 17.7 (12.0-20.0); Calcium, Blood 8.7 mg/dL (8.5-10.1); Creatinine, Blood 0.9 mg/dL (0.60-1.20); Magnesium, Blood 2.2 mg/dL (1.6-2.4); Potassium, Blood 3.3 mmol/L (3.5-5.5)
[2023-11-11 08:11] VITALS: BP 142/87
[2023-11-11 12:29] LABS: Bun/Creatinine Ratio 17.1 (12.0-20.0); Calcium, Blood 8.5 mg/dL (8.5-10.1); Creatinine, Blood 0.88 mg/dL (0.60-1.20); Potassium, Blood 3.3 mmol/L (3.5-5.5)
[2023-11-11 15:58] VITALS: BP 141/88
[2023-11-11 17:58] LABS: Creatinine, Blood 0.94 mg/dL (0.60-1.20); Potassium, Blood 3.4 mmol/L (3.5-5.5)
[2023-11-11 21:01] VITALS: BP 131/72
[2023-11-12 05:25] VITALS: BP 138/74
[2023-11-12 08:17] VITALS: BP 136/84
[2023-11-12 08:51] LABS: Calcium, Blood 9.1 mg/dL (8.5-10.1); Creatinine, Blood 0.83 mg/dL (0.60-1.20); Potassium, Blood 3.5 mmol/L (3.5-5.5)
[2023-11-12 09:04] LABS: BASOPHILS ABSOLUTE AUTO 0.06 K/mm3 (0.00-0.23); BASOPHILS PERCENT AUTO 1 % (0-2); EOSINOPHILS ABSOLUTE AUTO 0.19 K/mm3 (0.00-0.68); EOSINOPHILS PERCENT AUTO 3 % (0-6); Hematocrit 37.3 % (37.0-53.0); IMMATURE GRAN ABSOLUTE AUTO 0.09 K/mm3 (0.00-0.10); IMMATURE GRAN PERCENT AUTO 1 % (0-1); LYMPHOCYTES ABSOLUTE AUTO 1.69 K/mm3 (0.84-5.20); LYMPHOCYTES PERCENT AUTO 26 % (21-46); MONOCYTES ABSOLUTE AUTO 0.71 K/mm3 (0.16-1.47); MONOCYTES PERCENT AUTO 11 % (4-13); Mean Corpuscular HGB 30.2 pg (26.0-34.0); Mean Corpuscular HGB Conc 34.9 g/dL (31.5-36.5); Mean Corpuscular Volume 87 fL (80-100); Mean Platelet Volume 9.9 fL (9.1-12.4); NEUTROPHILS ABSOLUTE AUTO 3.77 K/mm3 (1.96-9.15); NEUTROPHILS PERCENT AUTO 58 % (41-73); Platelet Count 210 K/mm3 (150-400); RDW Coefficient Variation 14.6 % (11.7-14.2); RDW Standard Deviation 46.2 fL (35.1-46.3); White Blood Cell Count 6.51 K/mm3 (4.00-11.30)
[2023-11-12 16:30] VITALS: BP 140/82
[2023-11-12 19:40] VITALS: BP 141/76
[2023-11-13 04:55] VITALS: BP 146/92
[2023-11-13 06:40] LABS: BASOPHILS ABSOLUTE AUTO 0.06 K/mm3 (0.00-0.23); BASOPHILS PERCENT AUTO 1 % (0-2); EOSINOPHILS ABSOLUTE AUTO 0.24 K/mm3 (0.00-0.68); EOSINOPHILS PERCENT AUTO 3 % (0-6); Hematocrit 38.1 % (37.0-53.0); Hemoglobin 12.9 g/dL (13.5-17.5); IMMATURE GRAN ABSOLUTE AUTO 0.12 K/mm3 (0.00-0.10); IMMATURE GRAN PERCENT AUTO 2 % (0-1); LYMPHOCYTES ABSOLUTE AUTO 2.04 K/mm3 (0.84-5.20); LYMPHOCYTES PERCENT AUTO 28 % (21-46); MONOCYTES ABSOLUTE AUTO 0.78 K/mm3 (0.16-1.47); MONOCYTES PERCENT AUTO 11 % (4-13); Mean Corpuscular HGB 29.7 pg (26.0-34.0); Mean Corpuscular HGB Conc 33.9 g/dL (31.5-36.5); Mean Corpuscular Volume 88 fL (80-100); Mean Platelet Volume 9.3 fL (9.1-12.4); NEUTROPHILS ABSOLUTE AUTO 4.12 K/mm3 (1.96-9.15); NEUTROPHILS PERCENT AUTO 56 % (41-73); Platelet Count 202 K/mm3 (150-400); RDW Coefficient Variation 14.4 % (11.7-14.2); RDW Standard Deviation 46.3 fL (35.1-46.3); Red Blood Cell Count 4.35 M/mm3 (4.30-5.90); White Blood Cell Count 7.36 K/mm3 (4.00-11.30)
[2023-11-13 07:08] LABS: Calcium, Blood 9.2 mg/dL (8.5-10.1); Creatinine, Blood 0.85 mg/dL (0.60-1.20); Potassium, Blood 3.9 mmol/L (3.5-5.5)
[2023-11-13 09:42] VITALS: BP 141/85
[2023-11-13 15:13] VITALS: BP 115/79
[2023-11-13 19:39] VITALS: BP 142/89
[2023-11-14 04:44] VITALS: BP 143/83
[2023-11-14 05:22] LABS: Hematocrit 37.6 % (37.0-53.0); Hemoglobin 12.9 g/dL (13.5-17.5)
[2023-11-14 09:03] VITALS: BP 146/74
[2023-11-14] MEDS ORDERED: POTCHL20ER PO (11:02)
[2023-11-14] MEDS ORDERED: CEFAZOLIN2 GM/50 M3 IV (11:03)
[2023-11-14] MEDS ORDERED: VISBIOME 112.51 EACH PO (11:03)
[2023-11-14] MEDS ORDERED: DOCU100 PO (11:03)
[2023-11-14] MEDS ORDERED: CLINDAMYCI900 MG/52 IV (11:04)
== END 2023-11-14 12:24 | disposition home health service (06) | DRG 872 ==
LOC: ER 22:04 → MEDS 11-08 04:02 → ERHOLD 11-08 04:02 → MEDS 11-08 12:56
PROVIDERS: Family Medicine; Student in an Organized Health Care Education/Training Program; ADMIT Student in an Organized Health Care Education/Training Program
DX: A41.9 Sepsis, unspecified organism (principal); L03.116 Cellulitis of left lower limb; Z68.41 Body mass index [BMI] 40.0-44.9, adult; R65.20 Severe sepsis without septic shock; I87.8 Other specified disorders of veins; I10 Essential (primary) hypertension; L97.529 Non-pressure chronic ulcer of other part of left foot with unspecified severity; E86.0 Dehydration; E87.6 Hypokalemia; E66.01 Morbid (severe) obesity due to excess calories; G47.33 Obstructive sleep apnea (adult) (pediatric); K59.00 Constipation, unspecified; Z79.899 Other long term (current) drug therapy
CPT/HCPCS: 36415; 73630; 73701; 80048; 80053; 83605; 83735; 84145; 85014; 85018; 85025; 85027; 87040; 90471; 90714; 93005; 93010; 93971; 94660; 94762; 96361; 96374; 96375-59; 96376-59; 99285-25; A9270; J0690; J0696; J1650; J1885; J2270; J2405; J3480; J7030; J7050; J7120; Q9967

== ENCOUNTER → 2023-11-19 | Outpatient (CLI) | payer OTHER ==
[~2023-11-19] MED LIST changes: +CEFAZOLIN2 GM/50 M3 IV; +CLINDAMYCI900 MG/52 IV; +DOCU100 PO; +DOXY100 PO; +POTCHL20ER PO; +VISBIOME 112.51 EACH PO
[2023-11-19 12:56] LABS: Hematocrit 40.8 % (37.0-53.0); Hemoglobin 13.5 g/dL (13.5-17.5); Mean Corpuscular HGB 29.2 pg (26.0-34.0); Mean Corpuscular HGB Conc 33.1 g/dL (31.5-36.5); Mean Corpuscular Volume 88 fL (80-100); Platelet Count 309 K/mm3 (150-400); RDW Coefficient Variation 13.9 % (11.7-14.2); RDW Standard Deviation 44.8 fL (35.1-46.3); Red Blood Cell Count 4.62 M/mm3 (4.30-5.90); White Blood Cell Count 6.95 K/mm3 (4.00-11.30)
[2023-11-20 09:11] LABS: CALCIUM, SERUM 9.9 mg/dL (8.7-10.2); CREATININE, SERUM 1.05 mg/dL (0.76-1.27)
== END | disposition home or self-care (01) ==
LOC: LAB SHORT 11:30
PROVIDERS: Physician Assistant Medical
DX: L03.116 Cellulitis of left lower limb (principal)
CPT/HCPCS: 80048; 85027

== ENCOUNTER → 2023-11-25 | Outpatient (CLI) | payer OTHER ==
[2023-11-25 14:13] LABS: Hemoglobin 12.9 g/dL (13.5-17.5); Mean Corpuscular HGB Conc 33.1 g/dL (31.5-36.5); Mean Corpuscular Volume 88 fL (80-100); Mean Platelet Volume 9.1 fL (9.1-12.4); Platelet Count 319 K/mm3 (150-400); RDW Coefficient Variation 14.1 % (11.7-14.2); RDW Standard Deviation 45.1 fL (35.1-46.3); Red Blood Cell Count 4.45 M/mm3 (4.30-5.90); White Blood Cell Count 5.24 K/mm3 (4.00-11.30)
[2023-11-26 18:07] LABS: CALCIUM, SERUM 9.8 mg/dL (8.7-10.2); CREATININE, SERUM 0.92 mg/dL (0.76-1.27); POTASSIUM, SERUM 4.1 mmol/L (3.5-5.2)
== END ==
LOC: LAB 09:35 → LAB SHORT 09:35
PROVIDERS: Physician Assistant Medical
DX: L03.116 Cellulitis of left lower limb (principal); I87.2 Venous insufficiency (chronic) (peripheral)
CPT/HCPCS: 80048; 85027

== ENCOUNTER 2025-05-31 12:56 | Inpatient (IN) | payer OTHER ==
[~2025-05-31] VITALS: Ht 190.5 cm; Wt 147.4 kg
[2025-05-31] MEDS ORDERED: Ketorolac Tromethamine 15mg Vial IV ONE (13:40)
[2025-05-31] MEDS ORDERED: NS 1,000 ML IV SCH ×3 (13:40→15:28)
[2025-05-31 14:10] LABS: BASOPHILS ABSOLUTE AUTO 0.04 K/mm3 (0.00-0.23); BASOPHILS PERCENT AUTO 0 % (0-2); EOSINOPHILS ABSOLUTE AUTO 0.07 K/mm3 (0.00-0.68); EOSINOPHILS PERCENT AUTO 1 % (0-6); Hematocrit 43.6 % (37.0-53.0); Hemoglobin 15.0 g/dL (13.5-17.5); IMMATURE GRAN ABSOLUTE AUTO 0.06 K/mm3 (0.00-0.10); IMMATURE GRAN PERCENT AUTO 0 % (0-1); LYMPHOCYTES ABSOLUTE AUTO 0.53 K/mm3 (0.84-5.20); LYMPHOCYTES PERCENT AUTO 4 % (21-46); MONOCYTES ABSOLUTE AUTO 0.40 K/mm3 (0.16-1.47); MONOCYTES PERCENT AUTO 3 % (4-13); Mean Corpuscular HGB Conc 34.4 g/dL (31.5-36.5); Mean Corpuscular Volume 88 fL (80-100); NEUTROPHILS ABSOLUTE AUTO 14.11 K/mm3 (1.96-9.15); NEUTROPHILS PERCENT AUTO 93 % (41-73); NRBC ABSOLUTE 0.00 K/mm3 (0.00-0.02); NRBC Auto 0.0 /100 WBC (0.0-0.2); Platelet Count 153 K/mm3 (150-400); RDW Coefficient Variation 14.9 % (11.7-14.2); RDW Standard Deviation 46.9 fL (35.1-46.3)
[2025-05-31 14:32] LABS: Alanine Aminotransfer (ALT/SGP 26.0 U/L (12-78); Albumin, Blood 3.9 g/dL (3.4-5.0); Albumin/Globulin Ratio 1.1 (0.8-1.8); Anion Gap 10.0 mmol/L (3-11); Aspartate Aminotrans (AST/SGOT 16.0 U/L (12-37); Bilirubin, Total 1.2 mg/dL (0.1-1.0); Blood Urea Nitrogen 14.0 mg/dL (8-24); CO2, Blood 25.0 mmol/L (21-32); Calcium, Blood 8.9 mg/dL (8.5-10.1); Chloride, Blood 109.0 mmol/L (98-108); Creatinine, Blood 1.05 mg/dL (0.60-1.20); Globulin, Blood 3.5 g/dL (2.2-4.0); Glucose, Blood 98.0 mg/dL (70-99); Potassium, Blood 3.6 mmol/L (3.5-5.5); Sodium, Blood 140.0 mmol/L (136-145); Total Protein, Blood 7.4 g/dL (6.4-8.2)
[2025-05-31] MEDS ORDERED: FentaNYL Citrate 50 MCG/ML 2 ML Injection IV ONE (15:25)
[2025-05-31] MEDS ORDERED: HYDROmorphone HCl/Pf 1MG SYR IV ONE (16:00)
[2025-05-31 16:19] LABS: Influenza A, PCR NEGATIVE (NEGATIVE); Influenza B, PCR NEGATIVE (NEGATIVE); Resp Syncytial Virus, PCR NEGATIVE (NEGATIVE); SARS-Cov-2 (COVID-19) PCR, MMC NEGATIVE (NEGATIVE)
[2025-05-31] MEDS ORDERED: CefTRIAXone Sodium 1,000 MG in NS 100 ML IV ONE (17:30)
[2025-05-31 18:41] LABS: Source, Urine Clean Catch
[2025-05-31 18:57] LABS: Bilirubin, Urine Neg (Neg); Color, Urine Yellow (P-Yellow); Glucose Qualitative, Urine Neg (Neg); Ketones, Urine Neg (Neg); Leukocyte Esterase, Urine Neg (Neg); Protein, Urine Neg (Neg); Specific Gravity, Urine 1.010 (1.003-1.022); Urobilinogen, Urine NORM (Normal)
[2025-05-31 19:01] LABS: RBC Count, CSF 446 /mm3 (0-0); WBC Count, CSF 41 /mm3 (0-5)
[2025-05-31 19:43] LABS: Haemophilus Influenza Not Detected (NOT DETECT)
[2025-05-31] MEDS ORDERED: Ondansetron HCl 2 MG / ML 2ML Vial IV PRN (20:20)
[2025-05-31] MEDS ORDERED: Albuterol 2.5 MG/3 ML VIAL INH PRN (20:20)
[2025-05-31] MEDS ORDERED: Ketorolac Tromethamine 15mg Vial IV PRN (20:40)
[2025-05-31] MEDS ORDERED: Lactobacil 2-S.Thermo-Bifido 1 1 Cap PO SCH (21:00)
[2025-05-31] MEDS ORDERED: Clindamycin 900mg in D5W 50ML 50 ML IV SCH (21:00)
[2025-05-31] MEDS ORDERED: Heparin Sodium,Porcine 5,000 UNIT/0.5 ML SDV SC SCH (21:00)
[2025-05-31 23:33] VITALS: BP 140/93
[2025-06-01] MEDS ORDERED: CeFAZolin Sodium 2,000 MG in NS 100 ML IV SCH
[2025-06-01] MEDS ORDERED: CENTRUM SILVER1 EAC2 PO (00:04)
[2025-06-01] MEDS ORDERED: THERA-D2000 UNIT PO (00:05)
[2025-06-01] MEDS ORDERED: CELE200 PO (00:06)
[2025-06-01] MEDS ORDERED: ACET500 PO (01:02)
[2025-06-01] MEDS ORDERED: WEGOVY2.4 MG/0.7 SC (01:07)
--- NOTE | 2025-06-01 01:44 | NUR ---
PT C/O OF NAUSEA QUICKLY FOLLOWED BY LARGE, YELLOW EMESIS. PT MEDICATED FOR NAUSEA/VOMITING WITH ZOFRAN (SEE MAR).
[2025-06-01 04:37] VITALS: BP 174/105
[2025-06-01 04:38] LABS: Hematocrit 46.7 % (37.0-53.0); Hemoglobin 15.6 g/dL (13.5-17.5); Mean Corpuscular HGB Conc 33.4 g/dL (31.5-36.5); Mean Corpuscular Volume 91 fL (80-100); NRBC ABSOLUTE 0.00 K/mm3 (0.00-0.02); NRBC Auto 0.0 /100 WBC (0.0-0.2); Platelet Count 131 K/mm3 (150-400); RDW Coefficient Variation 15.4 % (11.7-14.2); RDW Standard Deviation 50.4 fL (35.1-46.3)
[2025-06-01 05:00] LABS: BAND PERCENT MAN 18 % (0-8); BASOPHILS ABSOLUTE MAN 0.00 K/mm3 (0.00-0.23); BASOPHILS PERCENT MAN 0 % (0-2); EOSINOPHILS ABSOLUTE MAN 0.00 K/mm3 (0.00-0.68); EOSINOPHILS PERCENT MAN 0 % (0-6); LYMPHOCYTES ABSOLUTE MAN 0.51 K/mm3 (0.84-5.20); LYMPHOCYTES PERCENT MAN 2 % (21-46); MONOCYTES ABSOLUTE MAN 0.25 K/mm3 (0.16-1.47); MONOCYTES PERCENT MAN 1 % (4-13); NEUTROPHILS ABSOLUTE MAN 25.05 K/mm3 (1.96-9.15); SEG NEUTROPHILS PERCENT MAN 79 % (41-73)
[2025-06-01 05:15] LABS: Anion Gap 9.0 mmol/L (3-11); Blood Urea Nitrogen 18.0 mg/dL (8-24); CO2, Blood 26.0 mmol/L (21-32); Calcium, Blood 8.6 mg/dL (8.5-10.1); Chloride, Blood 105.0 mmol/L (98-108); Creatinine, Blood 1.12 mg/dL (0.60-1.20); Glucose, Blood 114.0 mg/dL (70-99); Magnesium, Blood 1.7 mg/dL (1.6-2.4); Potassium, Blood 4.3 mmol/L (3.5-5.5); Sodium, Blood 136.0 mmol/L (136-145)
[2025-06-01 05:41] VITALS: BP 156/74
--- NOTE | 2025-06-01 07:17 | NUR ---
PT ADMITTED FROM ED. PT IS AOX4, BEDREST AT THIS TIME FOR SAFETY. PT ABLE TO USE CALL LIGHT AND MAKE NEEDS KNOWN APPROPRIATELY. LIU IN PLACE D/T RETENTION. PT TOLERATING IV ABX AND IV FLUIDS WELL. PT DID HAVE ONE EPISODE OF N/V AND RECEIVED ZOFRAN WITH GOOD EFFECT. PT WAS FEBRILE THROUGHOUT THE SHIFT PEAKING THIS AM AT 103.7F. ANTIPYRETICS GIVEN. PT BED MOBILITY/LEG MOBILITY IMPAIRED. PT HAD DIFFICULTY TO POSITIONING FOR TRACING OF ERYTHEMA AND OBTAINING PHOTO DOCUMENTATION.
[2025-06-01 07:28] VITALS: BP 128/81
[2025-06-01] MEDS ORDERED: TROLAMINE SALICYLATE 10% CREAM 141 GM TUBE TOP PRN (13:00)
[2025-06-01 15:11] VITALS: BP 121/63
[2025-06-01 16:52] LABS: BASOPHILS ABSOLUTE AUTO 0.04 K/mm3 (0.00-0.23); BASOPHILS PERCENT AUTO 0 % (0-2); EOSINOPHILS ABSOLUTE AUTO 0.04 K/mm3 (0.00-0.68); EOSINOPHILS PERCENT AUTO 0 % (0-6); Hematocrit 39.3 % (37.0-53.0); Hemoglobin 13.7 g/dL (13.5-17.5); IMMATURE GRAN ABSOLUTE AUTO 0.11 K/mm3 (0.00-0.10); IMMATURE GRAN PERCENT AUTO 1 % (0-1); LYMPHOCYTES ABSOLUTE AUTO 0.82 K/mm3 (0.84-5.20); LYMPHOCYTES PERCENT AUTO 5 % (21-46); MONOCYTES ABSOLUTE AUTO 0.54 K/mm3 (0.16-1.47); MONOCYTES PERCENT AUTO 3 % (4-13); Mean Corpuscular HGB Conc 34.9 g/dL (31.5-36.5); Mean Corpuscular Volume 89 fL (80-100); NEUTROPHILS ABSOLUTE AUTO 14.65 K/mm3 (1.96-9.15); NEUTROPHILS PERCENT AUTO 91 % (41-73); NRBC ABSOLUTE 0.00 K/mm3 (0.00-0.02); NRBC Auto 0.0 /100 WBC (0.0-0.2); Platelet Count 104 K/mm3 (150-400); RDW Coefficient Variation 15.5 % (11.7-14.2); RDW Standard Deviation 50.5 fL (35.1-46.3)
--- NOTE | 2025-06-01 16:52 | NUR ---
SHIFT SUMMARY: PT ALERT AND ORIENTED X4, ABLE TO FOLLOW COMMANDS AND MAKE NEEDS KNOWN. STRENGTH EQUAL BILATERALLY. COOPERATIVE WITH CARE. BP STABLE. HR SR 90'S. SPO2 >96% ON ROOM AIR. LUNG SOUNDS DIM IN BASES. PT FEBRILE MAJORITY OF THIS SHIFT. TEMP FROM 100.4-101.0. MEDICATED PER EMAR WITH TYLENOL. ABD DISTENDED, BOWEL SOUNDS +. +2 EDEMA NOTED IN BLE. PT WITH CELLULITUS TO R. LOWER LEG. REDNESS MARKED. PT WITH ULCER TO R. FOOT, THIRD DIGIT. PODIATRY CONSULED. SEE PHOTOS IN CHART. PULSES FAINT, PALPABLE. LIU CATHETER IN PLACE, PATENT AND DRAINING TAIWO URINE TO GRAVITY. POWERGLIDE PLACED IN SURINDER, NS GTT @75ML/HR. PT MEDICATED FOR PAIN X1. ABLE TO REPOS IND IN BED. BED IN LOW, CALL LIGHT IN REACH, WILL REPORT TO ONCOMING RN.
--- NOTE | 2025-06-01 17:02 | NUR ---
SHIFT SUMMARY: PT ALERT AND ORIENTED X4, ABLE TO FOLLOW COMMANDS AND MAKE NEEDS KNOWN. STRENGTH EQUAL BILATERALLY. COOPERATIVE WITH CARE. BP STABLE. AFEBRILE. SPO2 >98% ON ROOM AIR. LUNG SOUNDS CLEAR THROUGHOUT. HR REMAINS AFLUTTER 80'S. PT WITH 8/10 CHEST PAIN THIS EVENING, EKG OBTAINED. MD NOTIFIED. ABD SOFT, NON TENDER, BOWEL SOUNDS +. PULSES STRONG AND EQUAL THROUGHOUT. FAMILY AT BEDSIDE THIS EVENING, UPDATED ON PT PLAN OF CARE. BED IN LOW, CALL LIGHT IN REACH, WILL REPORT ONCOMING RN.
[2025-06-01 19:33] VITALS: BP 123/63
[2025-06-01 23:29] VITALS: BP 152/10; BP 152/70
[2025-06-02 05:10] VITALS: BP 139/70
[2025-06-02 05:19] LABS: BASOPHILS ABSOLUTE AUTO 0.03 K/mm3 (0.00-0.23); BASOPHILS PERCENT AUTO 0 % (0-2); EOSINOPHILS ABSOLUTE AUTO 0.00 K/mm3 (0.00-0.68); EOSINOPHILS PERCENT AUTO 0 % (0-6); Hematocrit 37.6 % (37.0-53.0); Hemoglobin 13.0 g/dL (13.5-17.5); IMMATURE GRAN ABSOLUTE AUTO 0.07 K/mm3 (0.00-0.10); IMMATURE GRAN PERCENT AUTO 1 % (0-1); LYMPHOCYTES ABSOLUTE AUTO 0.70 K/mm3 (0.84-5.20); LYMPHOCYTES PERCENT AUTO 5 % (21-46); MONOCYTES ABSOLUTE AUTO 0.56 K/mm3 (0.16-1.47); MONOCYTES PERCENT AUTO 4 % (4-13); Mean Corpuscular HGB Conc 34.6 g/dL (31.5-36.5); Mean Corpuscular Volume 87 fL (80-100); NEUTROPHILS ABSOLUTE AUTO 12.75 K/mm3 (1.96-9.15); NEUTROPHILS PERCENT AUTO 90 % (41-73); NRBC ABSOLUTE 0.00 K/mm3 (0.00-0.02); NRBC Auto 0.0 /100 WBC (0.0-0.2); Platelet Count 113 K/mm3 (150-400); RDW Coefficient Variation 15.3 % (11.7-14.2); RDW Standard Deviation 49.0 fL (35.1-46.3)
[2025-06-02 05:40] LABS: Alanine Aminotransfer (ALT/SGP 24.0 U/L (12-78); Albumin, Blood 2.9 g/dL (3.4-5.0); Albumin/Globulin Ratio 0.8 (0.8-1.8); Anion Gap 8.0 mmol/L (3-11); Aspartate Aminotrans (AST/SGOT 28.0 U/L (12-37); Bilirubin, Total 1.1 mg/dL (0.1-1.0); Blood Urea Nitrogen 19.0 mg/dL (8-24); CO2, Blood 25.0 mmol/L (21-32); Calcium, Blood 8.2 mg/dL (8.5-10.1); Chloride, Blood 103.0 mmol/L (98-108); Creatinine, Blood 1.16 mg/dL (0.60-1.20); Globulin, Blood 3.6 g/dL (2.2-4.0); Glucose, Blood 115.0 mg/dL (70-99); Potassium, Blood 3.2 mmol/L (3.5-5.5); Sodium, Blood 133.0 mmol/L (136-145); Total Protein, Blood 6.5 g/dL (6.4-8.2)
--- NOTE | 2025-06-02 06:36 | NUR ---
SHIFT SUMMARY ARRIVED FROM PCU TRANSFER APPROX 51. HE IS HERE WITH SEPSIS, RLE CELLULITIS AND AN ULCER ON HIS R MIDDLE TOE. PT HAS PODIATRY CONSULT ON BOARD, AND WITH HAVE CONSULTATION WITH THEM FOR CARE OF INFECTED TOE. CURRENTLY RECEIVING ANTIBIOTICS AND RESTING PEACEFULLY. HE HAS BEEN PLEASANT AND COOPERATIVE WITH CARE.
[2025-06-02 07:20] VITALS: BP 141/66
[2025-06-02] MEDS ORDERED: Cholecalciferol 1000 Unit Tablet (=25MCG) PO SCH (09:00)
[2025-06-02] MEDS ORDERED: Enoxaparin 40 MG/0.4 ML SYR SC SCH (16:00)
[2025-06-02 16:44] VITALS: BP 130/73
--- NOTE | 2025-06-02 16:56 | NUR ---
SHIFT SUMMARY PT AOX4, 1 ASSIST TO THE BATHROOM. CALLS AND MAKES HIS NEEDS KNOWN. SLEPT OFF AND ON THE WHOLE SHIFT. MEDICATED FOR PAIN PER THE EMAR. LIU REMOVED. PT PROVIDED EDUCATION. UP IN THE CHAIR TODAY AND TOLERATING WELL. REPOSITIONS SELF IN BED. POSSIBLE DC TOMORROW. CALL LIGHT WITHIN REACH, BED LOCKED AND IN THE LOWEST POSITION. WILL REPORT TO ONCOMING NURSE.
[2025-06-02 19:35] VITALS: BP 121/76
[2025-06-03 04:03] VITALS: BP 123/75
[2025-06-03 06:01] LABS: BASOPHILS ABSOLUTE AUTO 0.02 K/mm3 (0.00-0.23); BASOPHILS PERCENT AUTO 0 % (0-2); EOSINOPHILS ABSOLUTE AUTO 0.06 K/mm3 (0.00-0.68); EOSINOPHILS PERCENT AUTO 1 % (0-6); Hematocrit 34.9 % (37.0-53.0); Hemoglobin 12.0 g/dL (13.5-17.5); IMMATURE GRAN ABSOLUTE AUTO 0.03 K/mm3 (0.00-0.10); IMMATURE GRAN PERCENT AUTO 0 % (0-1); LYMPHOCYTES ABSOLUTE AUTO 0.86 K/mm3 (0.84-5.20); LYMPHOCYTES PERCENT AUTO 10 % (21-46); MONOCYTES ABSOLUTE AUTO 0.59 K/mm3 (0.16-1.47); MONOCYTES PERCENT AUTO 7 % (4-13); Mean Corpuscular HGB Conc 34.4 g/dL (31.5-36.5); Mean Corpuscular Volume 88 fL (80-100); NEUTROPHILS ABSOLUTE AUTO 6.95 K/mm3 (1.96-9.15); NEUTROPHILS PERCENT AUTO 82 % (41-73); NRBC ABSOLUTE 0.00 K/mm3 (0.00-0.02); NRBC Auto 0.0 /100 WBC (0.0-0.2); Platelet Count 103 K/mm3 (150-400); RDW Coefficient Variation 15.2 % (11.7-14.2); RDW Standard Deviation 49.2 fL (35.1-46.3)
[2025-06-03 06:22] LABS: Alanine Aminotransfer (ALT/SGP 17.0 U/L (12-78); Albumin, Blood 2.5 g/dL (3.4-5.0); Albumin/Globulin Ratio 0.7 (0.8-1.8); Anion Gap 7.0 mmol/L (3-11); Aspartate Aminotrans (AST/SGOT 25.0 U/L (12-37); Bilirubin, Total 0.8 mg/dL (0.1-1.0); Blood Urea Nitrogen 16.0 mg/dL (8-24); CO2, Blood 27.0 mmol/L (21-32); Calcium, Blood 8.7 mg/dL (8.5-10.1); Chloride, Blood 105.0 mmol/L (98-108); Creatinine, Blood 0.92 mg/dL (0.60-1.20); Globulin, Blood 3.5 g/dL (2.2-4.0); Glucose, Blood 102.0 mg/dL (70-99); Potassium, Blood 3.4 mmol/L (3.5-5.5); Sodium, Blood 136.0 mmol/L (136-145); Total Protein, Blood 6.0 g/dL (6.4-8.2)
--- NOTE | 2025-06-03 07:32 | NUR ---
PT ALERT AND ORIENTED X 4. SBA AMBULATING TO THE BATHROOM. ON RA. MEDICATED FOR POLLOCK PER DEC. DRESSING TO RLLE C/D/I. PT HAD A BM THIS MORNING. PT IS RETAINING URINE. BLADDER SCAN AT 2200 WAS 428. STRAIGHT CATHED BUT PT STARTED VOIDING IN THE BED BEFORE CATHETER WAS ADVANCED ALL THE WAY INCLUDING AT 0500. NO ACCURATTE OUTPUT FOR THIS REASON BUT BOTH TIMES POST VOID BLADDER SCAN WAS 0LMS. CALL SCHROEDER WITHIN REACH.
[2025-06-03 07:57] VITALS: BP 144/83
[2025-06-03 16:06] VITALS: BP 136/70
--- NOTE | 2025-06-03 17:43 | NUR ---
SHIFT SUMMARY PT AOX4, 1 ASSIST TO THE BR. LIU PLACE AGAIN THIS SHIFT, 800ML OUT. PAIN APPEARS TO BE UNDER CONTROL AT THIS TIME. DRESSING CHANGED TO L TOE. PT REPOSITIONS SELF IN BED. POSSIBLE DC TOMORROW. CALL LIGHT WITHIN REACH, BED LOCKED AND IN THE LOWEST POSITION. WILL REPORT TO ONCOMING NURSE.
[2025-06-03 19:30] VITALS: BP 150/75
[2025-06-04 04:20] VITALS: BP 136/84
--- NOTE | 2025-06-04 04:32 | NUR ---
NO ACUTE CHANGES DUIRNG SHIFT. PATIENT IS ALERT AND ORIENTED X 4. PATIENT USES CPAP AT NIGHT. LR RUNNING AT 75 ML/H. TYLENOL GIVEN FOR PAIN. PATIENT IS UP TO BATHROOM WITH [address] BED IN LOW POSITION WITH WHEELS LOCKED. CALL LIGHT WITHIN REACH.
[2025-06-04 06:08] LABS: BASOPHILS ABSOLUTE AUTO 0.02 K/mm3 (0.00-0.23); BASOPHILS PERCENT AUTO 0 % (0-2); EOSINOPHILS ABSOLUTE AUTO 0.08 K/mm3 (0.00-0.68); EOSINOPHILS PERCENT AUTO 1 % (0-6); Hematocrit 33.7 % (37.0-53.0); Hemoglobin 11.6 g/dL (13.5-17.5); IMMATURE GRAN ABSOLUTE AUTO 0.02 K/mm3 (0.00-0.10); IMMATURE GRAN PERCENT AUTO 0 % (0-1); LYMPHOCYTES ABSOLUTE AUTO 1.01 K/mm3 (0.84-5.20); LYMPHOCYTES PERCENT AUTO 16 % (21-46); MONOCYTES ABSOLUTE AUTO 0.72 K/mm3 (0.16-1.47); MONOCYTES PERCENT AUTO 12 % (4-13); Mean Corpuscular HGB Conc 34.4 g/dL (31.5-36.5); Mean Corpuscular Volume 88 fL (80-100); NEUTROPHILS ABSOLUTE AUTO 4.39 K/mm3 (1.96-9.15); NEUTROPHILS PERCENT AUTO 70 % (41-73); NRBC ABSOLUTE 0.00 K/mm3 (0.00-0.02); NRBC Auto 0.0 /100 WBC (0.0-0.2); Platelet Count 114 K/mm3 (150-400); RDW Coefficient Variation 15.1 % (11.7-14.2); RDW Standard Deviation 48.4 fL (35.1-46.3)
[2025-06-04 06:42] LABS: Alanine Aminotransfer (ALT/SGP 15.0 U/L (12-78); Albumin, Blood 2.4 g/dL (3.4-5.0); Albumin/Globulin Ratio 0.6 (0.8-1.8); Anion Gap 3.0 mmol/L (3-11); Aspartate Aminotrans (AST/SGOT 15.0 U/L (12-37); Bilirubin, Total 0.6 mg/dL (0.1-1.0); Blood Urea Nitrogen 12.0 mg/dL (8-24); CO2, Blood 30.0 mmol/L (21-32); Calcium, Blood 8.3 mg/dL (8.5-10.1); Chloride, Blood 106.0 mmol/L (98-108); Creatinine, Blood 0.83 mg/dL (0.60-1.20); Globulin, Blood 3.7 g/dL (2.2-4.0); Glucose, Blood 99.0 mg/dL (70-99); Potassium, Blood 3.0 mmol/L (3.5-5.5); Sodium, Blood 136.0 mmol/L (136-145); Total Protein, Blood 6.1 g/dL (6.4-8.2)
[2025-06-04 07:52] VITALS: BP 149/79
[2025-06-04] MEDS ORDERED: FLOMAX0.4 MG PO (12:53)
[2025-06-04] MEDS ORDERED: VISBIOME 112.51 EACH PO (12:53)
[2025-06-04] MEDS ORDERED: AMOCLA875 PO (12:54)
[2025-06-04 16:11] VITALS: BP 163/88
--- NOTE | 2025-06-04 19:20 | NUR ---
SHIFT SUMMARY: PATIENT A+O X4 AND COOPERATIVE WITH CARE. MRI WAS SCHEDULED THIS SHIFT BUT THIS PATIENT WAS NOT ABLE TO FIT IN THE MACHINE. MD NOTIFIED AND HAD ORDERED A LUMBAR CT W/ CONTRAST. PLAN TO CONTINUE ANTIBIOTICS AT THIS TIME. PATIENT GIVEN TORODOL AND TYLENOL THIS SHIFT FOR HEADACHE, SEE EMAR FOR MORE DETAILS. PATIENT REMAINS ON ROOM AIR AND IS SBA/1A WHEN ABULATING TO BATHROOM. BANDAGE CHANGED ON RLE TOE. IV AND POWERGLIDE PATENT. LR @75ML/HR CONT RUNNING AT THIS TIME. NO CURRENT NEEDS, WILL CONTINUE TO MONITOR.
[2025-06-04 19:40] VITALS: BP 139/75
--- NOTE | 2025-06-05 04:06 | NUR ---
PATIENT ALERT AND ORIENTED DURING SHIFT. PATIENT ON CPAP AT NIGHT. LR RUNNING AT 75 ML/HR. PATIENT WENT DOWN FOR CTOF LUMBAR SPINE. PATIENT SEEN BY DR. DUENAS FOR HEADACHE. FIORICET ORDERED FOR ONE TIME DOSE. PATIENT HAS LIU IN PLACE DRAINING TO GRAVITY. POWERGLIDE IN SURINDER. PATIENT ABLE TO MAKE NEEDS KNOWN. BED IN LOW POSITION WITH WHEELS LOCKED. CALL LIGHT WITHIN REACH.
[2025-06-05 04:32] VITALS: BP 162/87
[2025-06-05 05:26] LABS: BASOPHILS ABSOLUTE AUTO 0.02 K/mm3 (0.00-0.23); BASOPHILS PERCENT AUTO 0 % (0-2); EOSINOPHILS ABSOLUTE AUTO 0.13 K/mm3 (0.00-0.68); EOSINOPHILS PERCENT AUTO 2 % (0-6); Hematocrit 32.9 % (37.0-53.0); Hemoglobin 11.3 g/dL (13.5-17.5); IMMATURE GRAN ABSOLUTE AUTO 0.03 K/mm3 (0.00-0.10); IMMATURE GRAN PERCENT AUTO 1 % (0-1); LYMPHOCYTES ABSOLUTE AUTO 1.04 K/mm3 (0.84-5.20); LYMPHOCYTES PERCENT AUTO 18 % (21-46); MONOCYTES ABSOLUTE AUTO 0.75 K/mm3 (0.16-1.47); MONOCYTES PERCENT AUTO 13 % (4-13); Mean Corpuscular HGB Conc 34.3 g/dL (31.5-36.5); Mean Corpuscular Volume 88 fL (80-100); NEUTROPHILS ABSOLUTE AUTO 3.83 K/mm3 (1.96-9.15); NEUTROPHILS PERCENT AUTO 66 % (41-73); NRBC ABSOLUTE 0.00 K/mm3 (0.00-0.02); NRBC Auto 0.0 /100 WBC (0.0-0.2); Platelet Count 131 K/mm3 (150-400); RDW Coefficient Variation 14.9 % (11.7-14.2); RDW Standard Deviation 47.9 fL (35.1-46.3)
[2025-06-05 05:55] LABS: Alanine Aminotransfer (ALT/SGP 19.0 U/L (12-78); Albumin, Blood 2.4 g/dL (3.4-5.0); Albumin/Globulin Ratio 0.6 (0.8-1.8); Anion Gap 6.0 mmol/L (3-11); Aspartate Aminotrans (AST/SGOT 21.0 U/L (12-37); Bilirubin, Total 0.5 mg/dL (0.1-1.0); Blood Urea Nitrogen 9.0 mg/dL (8-24); CO2, Blood 29.0 mmol/L (21-32); Calcium, Blood 8.0 mg/dL (8.5-10.1); Chloride, Blood 104.0 mmol/L (98-108); Creatinine, Blood 0.86 mg/dL (0.60-1.20); Globulin, Blood 3.8 g/dL (2.2-4.0); Glucose, Blood 94.0 mg/dL (70-99); Potassium, Blood 3.1 mmol/L (3.5-5.5); Sodium, Blood 136.0 mmol/L (136-145); Total Protein, Blood 6.2 g/dL (6.4-8.2)
[2025-06-05 07:14] VITALS: BP 150/97
[2025-06-05] MEDS ORDERED: XARELTO20 MG PO (12:15)
--- NOTE | 2025-06-05 14:20 | NUR ---
1330 DISCHARGE REVIEWED WITH PT AND SPOUSE. IV AND POWERGLIDE REMOVED BY ALANNA KAUFMAN. PT TO EAT AND EXPECTING TO GO HOME AFTER. PT VERBALIZED UNDERSTANDING MEDS AND ISNT. PT TO DOOR AT 1417
--- NOTE | 2025-06-07 20:08 | NUR ---
reviewed pt's information r/t a records request from DR Sanchez at [facility] in [place] in the ER where the patient currently is.
== END 2025-06-05 15:34 | disposition home or self-care (01) | DRG 854 ==
LOC: ER 12:56 → ERHOLD 20:01 → MEDS 20:01 → PCU 20:01 → MEDS 06-02 00:57
PROVIDERS: Emergency Medicine; Nurse Practitioner Acute Care; Student in an Organized Health Care Education/Training Program; ADMIT Student in an Organized Health Care Education/Training Program
PROC: 3E03329 Introduction of Other Anti-infective into Peripheral Vein, Percutaneous Approach (ICD-10-PCS; principal; 2025-05-31)
PROC: 009U3ZX Drainage of Spinal Canal, Percutaneous Approach, Diagnostic (ICD-10-PCS; 2025-05-31)
PROC: 0T9B70Z Drainage of Bladder with Drainage Device, Via Natural or Artificial Opening (ICD-10-PCS; 2025-06-01)
PROC: 0JBQ0ZZ Excision of Right Foot Subcutaneous Tissue and Fascia, Open Approach (ICD-10-PCS; 2025-06-02)
DX: A41.01 Sepsis due to Methicillin susceptible Staphylococcus aureus (principal); E87.1 Hypo-osmolality and hyponatremia; L03.115 Cellulitis of right lower limb; L02.611 Cutaneous abscess of right foot; E87.21 Acute metabolic acidosis; L03.116 Cellulitis of left lower limb; Z68.41 Body mass index [BMI] 40.0-44.9, adult; I82.811 Embolism and thrombosis of superficial veins of right lower extremity; R65.20 Severe sepsis without septic shock; G47.33 Obstructive sleep apnea (adult) (pediatric); E87.6 Hypokalemia; I10 Essential (primary) hypertension; H91.90 Unspecified hearing loss, unspecified ear; R51.9 Headache, unspecified; K52.89 Other specified noninfective gastroenteritis and colitis; G89.29 Other chronic pain; D69.6 Thrombocytopenia, unspecified; E66.812 Obesity, class 2; R33.8 Other retention of urine; N32.89 Other specified disorders of bladder; I87.8 Other specified disorders of veins; M48.061 Spinal stenosis, lumbar region without neurogenic claudication; L97.519 Non-pressure chronic ulcer of other part of right foot with unspecified severity; G62.9 Polyneuropathy, unspecified; K59.00 Constipation, unspecified; Z85.828 Personal history of other malignant neoplasm of skin; Z79.2 Long term (current) use of antibiotics; Z87.19 Personal history of other diseases of the digestive system; Z79.899 Other long term (current) drug therapy
CPT/HCPCS: 36415; 51702; 62270; 70450; 71046; 72131; 73660; 74177; 80048; 80053; 81003; 82945; 83036; 83605; 83735; 84157; 85025; 87040; 87070; 87075; 87076; 87077; 87147; 87186; 87205; 87483; 87637; 89051; 93005; 93010; 93971; 94760; 94762; 96365-59; 96375-59; 99285-25; A9270; J0690; J0696; J1171; J1644; J1650; J1885; J2405; J3010; J7030; J7120; Q9967